=== PATIENT | male | born 1995 | race Caucasian/White ===

== ENCOUNTER 2017-08-22 12:58 | Emergency (ER) | payer OTHER ==
[~2017-08-22] VITALS: Ht 182.9 cm; Wt 121.0 kg
[~2017-08-22 12:58] MED LIST: Z.0.NO CURRENT MEDS
[2017-08-22 13:01] VITALS: BP 194/96; PULSE 104; RESP 16; TEMP 98.4; O2SAT 96
[2017-08-22] MEDS ORDERED: SODIUM CHLOR 0.9% 1000 ML INJ 1,000 ML IV ONE (13:29)
[2017-08-22] MEDS ORDERED: SODIUM CHLORIDE 0.9% FLUSH 10 ML FLUSH IVF PRN (13:30)
--- NOTE | 2017-08-22 13:33 | PD ---
HPI Chief Complaint: General Weakness Time Seen by Provider: 13:29 Travel History International Travel<30 days: No Contact w/Intl Traveler<30days: No Traveled to known affect area: No History of Present Illness HPI Patient presents with concerns of elevated blood sugar. No previous diagnosis of diabetes. States he has felt out of sorts for approximately 2 years with increased frequency of urination. States he was at an uncle's house last night when he checked his blood sugar. Result of 400. He is active. Diabetes does run on his mother and father's side. No aggravating or alleviating factors. Non-smoker. He does drink sodas regularly. PFSH Past Medical History Asthma: Yes Cardiovascular Problems: Yes (HEART MUR MUR) Diminished Hearing: No Immunizations Current: Yes Social History Alcohol Use: No Tobacco Use: Yes (05/06 PPD) Substance Use: No Allergies-Medications (Allergen,Severity, Reaction): Coded Allergies: No Known Allergies (Unverified Adverse Reaction, Unknown, 08/22/17) Reported Meds & Prescriptions Reported Meds & Active Scripts Active Review of Systems General / Constitutional: No: Fever Eyes: No: Visual changes HENT: No: Headaches Cardiovascular: No: Chest Pain or Discomfort Respiratory: No: Shortness of Breath Gastrointestinal: No: Abdominal Pain Genitourinary: Positive: Frequency, No: Dysuria Musculoskeletal: No: Pain Skin: No Rash Neurologic: No: Weakness Psychiatric: No: Depression Endocrine: No: Polydipsia Hematologic/Lymphatic: No: Easy Bruising Physical Exam Narrative GENERAL: Well-nourished, well-developed patient. SKIN: Focused skin assessment warm/dry. HEAD: Normocephalic. EYES: No scleral icterus. No injection or drainage. NECK: Supple, trachea midline. No JVD or lymphadenopathy. CARDIOVASCULAR: Regular rate and rhythm without murmurs, gallops, or rubs. RESPIRATORY: Breath sounds equal bilaterally. No accessory muscle use. GASTROINTESTINAL: Abdomen soft, non-tender, nondistended. MUSCULOSKELETAL: No cyanosis, or edema. BACK: Nontender without obvious deformity. No CVA tenderness. Data Data Last Documented VS Vital Signs Date Time Temp Pulse Resp B/P (MAP) Pulse Ox O2 Delivery O2 Flow Rate FiO2 08/22/17 13:43 20 98 Room Air 08/22/17 13:01 98.4 104 194/96 (128) Orders Orders Complete Blood Count With Diff (08/22/17 13:29) Comprehensive Metabolic Panel (08/22/17 13:29) Beta Hydroxybutyrate (Acetone) (08/22/17 13:29) Urinalysis - C+S If Indicated (08/22/17 13:29) Blood Glucose (08/22/17 13:29) Ecg Monitoring (08/22/17 13:29) Iv Access Insert/Monitor (08/22/17 13:29) Oximetry (08/22/17 13:29) NPO (08/22/17 13:29) Sodium Chloride 0.9% Flush (Ns Flush) (08/22/17 13:30) Sodium Chlor 0.9% 1000 Ml Inj (Ns 1000 M (08/22/17 13:29) Labs Laboratory Tests Test 08/22/17 13:35 08/22/17 14:00 White Blood Count 6.9 TH/MM3 Red Blood Count 5.42 MIL/MM3 Hemoglobin 16.2 GM/DL Hematocrit 47.0 % Mean Corpuscular Volume 86.7 FL Mean Corpuscular Hemoglobin 29.9 PG Mean Corpuscular Hemoglobin Concent 34.5 % Red Cell Distribution Width 12.1 % Platelet Count 163 TH/MM3 Mean Platelet Volume 12.4 FL Neutrophils (%) (Auto) 52.9 % Lymphocytes (%) (Auto) 31.5 % Monocytes (%) (Auto) 10.2 % Eosinophils (%) (Auto) 4.6 % Basophils (%) (Auto) 0.8 % Neutrophils # (Auto) 3.6 TH/MM3 Lymphocytes # (Auto) 2.2 TH/MM3 Monocytes # (Auto) 0.7 TH/MM3 Eosinophils # (Auto) 0.3 TH/MM3 Basophils # (Auto) 0.1 TH/MM3 CBC Comment AUTO DIFF Differential Comment AUTO DIFF CONFIRMED Platelet Estimate NORMAL Platelet Morphology Comment NORMAL Red Cell Morphology Comment NORMAL Blood Urea Nitrogen 10 MG/DL Creatinine 0.98 MG/DL Random Glucose 405 MG/DL Total Protein 7.8 GM/DL Albumin 4.0 GM/DL Calcium Level 8.8 MG/DL Alkaline Phosphatase 210 U/L Aspartate Amino Transf (AST/SGOT) 50 U/L Alanine Aminotransferase (ALT/SGPT) 107 U/L Total Bilirubin 1.0 MG/DL Sodium Level 139 MEQ/L Potassium Level 3.8 MEQ/L Chloride Level 103 MEQ/L Carbon Dioxide Level 29.8 MEQ/L Anion Gap 6 MEQ/L Estimat Glomerular Filtration Rate 96 ML/MIN B-Hydroxybutyrate 0.67 MMOL/L Urine Collection Type CLEAN CATCH Urine Color YELLOW Urine Turbidity CLEAR Urine pH 6.5 Urine Specific [place] 1.010 Urine Protein NEG mg/dL Urine Glucose (UA) 1000 OR GREATER mg/dL Urine Ketones 15 mg/dL Urine Occult Blood NEG Urine Nitrite NEG Urine Bilirubin NEG Urine Urobilinogen 0.2 MG/DL Urine Leukocyte Esterase NEG Urine Squamous Epithelial Cells 0-5 /hpf Microscopic Urinalysis Comment CULT NOT INDICATED Urine Collection Time 1400 [facility] Medical Decision Making Medical Screen Exam Complete: Yes Emergency Medical Condition: Yes Differential Diagnosis Hyperglycemia, diabetes, UTI Narrative Course Assessment plan discussed with patient and significant other at bedside. Random blood sugar 382. Labs reviewed and discussed with the patient. Diagnosis Primary Impression: Diabetes mellitus Qualified Codes: E13.9 - Other specified diabetes mellitus without complications Patient Instructions: General Instructions Additional Instructions: Encouraged good fluid intake, encouraged dietary and lifestyle modification, encouraged to follow-up with PCP. Return to emergency room with any onset of new symptoms. Med/Other Pt SpecificInfo: Prescription(s) given Scripts Metformin (Metformin) 500 Mg Tab 500 MG PO BIDPC for Blood Sugar Management, #60 TAB 0 Refills Prov: Michael Dubois MD 08/22/17 Disposition: 01 DISCHARGE HOME Condition: Good Michael Dubois MD Aug 22, 2017 13:33
[2017-08-22 14:17] LABS: AUTOMATED NEUTROPHIL # 3.6 TH/MM3 (1.8-7.7); BASOPHIL # 0.1 TH/MM3 (0-0.2); BASOPHIL % 0.8 % (0.0-2.0); EOSINOPHIL # 0.3 TH/MM3 (0-0.4); EOSINOPHIL % 4.6 % (0.0-4.0); HEMOGLOBIN 16.2 GM/DL (13.0-17.0); LYMPH % 31.5 % (9.0-44.0); LYMPHOCYTE # 2.2 TH/MM3 (1.0-4.8); MEAN CELL VOLUME 86.7 FL (80.0-100.0); MEAN CORPUSCULAR HEMOGLOBIN 29.9 PG (27.0-34.0); MEAN CORPUSCULAR HGB CONC 34.5 % (32.0-36.0); MEAN PLATELET VOLUME 12.4 FL (7.0-11.0); MONO % 10.2 % (0.0-8.0); MONOCYTE # 0.7 TH/MM3 (0-0.9); NEUT % 52.9 % (16.0-70.0); PLATELET COUNT 163 TH/MM3 (150-450); RED BLOOD COUNT 5.42 MIL/MM3 (4.50-5.90); RED CELL DISTRIBUTION WIDTH 12.1 % (11.6-17.2); WHITE BLOOD COUNT 6.9 TH/MM3 (4.0-11.0)
[2017-08-22 14:19] LABS: CHLORIDE 103 MEQ/L (98-107); SODIUM (NA) 139 MEQ/L (136-145)
[2017-08-22 14:23] LABS: BICARBONATE 29.8 MEQ/L (21.0-32.0); CALCIUM 8.8 MG/DL (8.5-10.1)
[2017-08-22 14:24] LABS: BILIRUBIN, URINE NEG (NEG); BLOOD, URINE NEG (NEG); GLUCOSE,URINE 1000 OR GREATER mg/dL (NEG); KETONE, URINE 15 mg/dL (NEG); NITRITE,URINE NEG (NEG); PH, URINE 6.5 (5.0-8.5); URINE COLOR YELLOW (YELLW/STRAW); URINE LEUKOCYTE ESTERASE NEG (NEG)
[2017-08-22 14:29] LABS: SQUAMOUS EPITHELIAL CELL URINE 0-5 /hpf (0-5)
[2017-08-22 14:38] LABS: ALKALINE PHOSPHATASE 210 U/L (45-117); ALT (GPT) 107 U/L (12-78); AST (GOT) 50 U/L (15-37); BLOOD UREA NITROGEN 10 MG/DL (7-18); CREATININE 0.98 MG/DL (0.60-1.30); GLOMERULAR FILTRATION RATE 96 ML/MIN (>89); GLUCOSE,RANDOM 405 MG/DL (74-106); TOTAL PROTEIN 7.8 GM/DL (6.4-8.2)
[2017-08-22] MEDS ORDERED: METF500T PO (15:21)
[2017-08-22 15:40] VITALS: BP 167/87
== END 2017-08-22 15:42 | disposition home or self-care (01) ==
LOC: PHED 12:58
DX: E11.8 Type 2 diabetes mellitus with unspecified complications (principal); R35.0 Frequency of micturition; J45.909 Unspecified asthma, uncomplicated; Z72.0 Tobacco use
CPT/HCPCS: 80053; 81001; 82010; 85025; 96360; 96361; 99284; J7030